=== PATIENT | female | born 1935 | race Caucasian/White ===

== ENCOUNTER 2019-04-11 11:39 | Emergency (ER) | payer MEDICARE ==
[2019-04-11 11:51] VITALS: BP 139/83
--- NOTE | 2019-04-11 12:03 | ED Physician Documentation ---
<EvanFermin Shields - Last Filed: 04/11/19 12:03> History of Present Illness - Stated complaint Stated Complaint: R LEG INJ - Chief complaint Chief Complaint: Ext Problem PD PAST MEDICAL HISTORY - Present Medications Home Medications: Ambulatory Orders Medication Instructions Recorded Confirmed Cephalexin [Keflex] 500 mg PO Q6H #28 capsule 04/11/19 Mupirocin 1 gm TP TID #2 [email or web address] 04/11/19 - Allergies Allergies/Adverse Reactions: Allergies Allergy/AdvReac Type Severity Reaction Status Date / Time No Known Drug Allergies Allergy Verified 04/11/19 11:45 Departure - Departure Disposition: Home, Self Care Clinical Impression: Infected wound Condition: Good Instructions: ED Wound Care Prescriptions: Cephalexin [Keflex] 500 mg PO Q6H #28 capsule Mupirocin 1 gm TP TID #2 [email or web address] Comments: We are performing a wound culture, the results should be done in 48-72 hours. If antibiotic change is necessary we will call you. Return if worse in the meantime, especially if you develop increased pain, fevers, cannot keep down the medication. Otherwise follow-up with your physician in approximately 2-3 days. Your blood pressure was elevated today on check into the emergency department. This does not mean that you have hypertension, it is a common phenomenon to come to the emergency department and have elevated blood pressure. I recommend that you see your primary care physician within the week to have it rechecked when you are feeling better. <Sebastian Dubon - Last Filed: 04/11/19 12:16> History of Present Illness - History obtained from History obtained from: Patient - History of Present Illness Timing: Other (3 weeks ago she bumped her leg on something and had a wound. Over the last 10 days or so it has become more painful and swollen and red. No fevers.) Review of Systems Constitutional: reports: Reviewed and negative Throat: reports: Reviewed and negative Cardiac: reports: Reviewed and negative PD ED PE NORMAL - Vitals Vital signs reviewed: Yes - General General: Alert and oriented X 3, No acute distress - Extremities Extremities: Other (There is a small heaped up wound with mild surrounding cellulitis of the anterior matias. At the bedside a deroofed it with an 18-gauge needle and there is no purulent drainage but the base was cultured.) - Neuro Neuro: Alert and oriented X 3, Normal speech Results - Vitals Vitals: Vital Signs - 24 hr 04/11/19 11:42 Temperature 36.4 C L Heart Rate 72 Respiratory 19 Rate Blood Pressure 139/83 H O2 Saturation 98 Oxygen O2 Source Room air Departure - Departure Record reviewed to determine appropriate education?: Yes
== END 2019-04-11 12:18 | disposition home or self-care (01) ==
LOC: ED 11:39
DX: L03.115 Cellulitis of right lower limb (principal); S81.801A Unspecified open wound, right lower leg, initial encounter; W22.8XXA Striking against or struck by other objects, initial encounter; R03.0 Elevated blood-pressure reading, without diagnosis of hypertension
CPT/HCPCS: 87070; 87181; 87205; 99283